=== PATIENT | male | born 1985 | race Two or more races ===

== ENCOUNTER 2021-05-07 12:49 | Emergency (ER) | payer BC, SELFPAY ==
[~2021-05-07] VITALS: Ht 185.4 cm; Wt 84.5 kg
[2021-05-07 12:52] VITALS: BP 131/86
--- NOTE | 2021-05-07 13:57 | NUR ---
X RAY DEVELOPER: PT AMBULATORY TO ROOM FROM LOBBY.
--- NOTE | 2021-05-07 14:40 | NUR ---
PT REC'VD DISCHARGE INSTRUCTIONS AND EDUCATION. PT HAD NO FURTHER QUESTIONS. PT AMBULATED TO DC AREA, STEADY GAIT.
== END 2021-05-07 14:58 | disposition home or self-care (01) ==
LOC: ED 14:49
DX: U07.1 COVID-19 (principal); B34.9 Viral infection, unspecified; M79.10 Myalgia, unspecified site
CPT/HCPCS: 99283; U0003; U0005